=== PATIENT | male | born 1995 | race Caucasian/White ===

== ENCOUNTER 2018-01-04 22:29 | Emergency (ER) | payer BC ==
[2018-01-04 22:38] VITALS: BP 160/85
--- NOTE | 2018-01-04 23:36 | ED ---
Lower Extremity - HPI Summary HPI Summary: 22M presents with right foot pain for two days. She he states that he inverted his ankle 2 days ago. He states that minimal pain yesterday but the pain is getting worse. He states he only has pain when he ambulates. He's noticed edema and ecchymosis to the area today. He is pain over his second and first metatarsal. He denies any previous injury to the foot. He denies any ankle pain. Denies any other injury. He has been taking ibuprofen and icing it. - History of Current Complaint Chief Complaint: EDExtremityLower Stated Complaint: RIGHT FOOT INJURY Time Seen by Provider: 01/04/18 23:28 Pain Intensity: 7 - Allergies/Home Medications Allergies/Adverse Reactions: Allergies Allergy/AdvReac Type Severity Reaction Status Date / Time No Known Allergies Allergy Verified 01/04/18 23:42 Home Medications: Home Medications NK [No Home Medications Reported] 01/04/18 [History Confirmed 01/04/18] PMH/Surg Hx/FS Hx/Imm Hx Endocrine/Hematology History: Denies: Hx Anticoagulant Therapy Cardiovascular History: Denies: Hx Myocardial Infarction Infectious Disease History: No Infectious Disease History: Denies: Traveled Outside the [place] in Last 30 Days - Family History Known Family History: Negative: Diabetes - Social History Alcohol Use: Occasionally Substance Use Type: Reports: None Review of Systems Negative: Fever Negative: Chest Pain Negative: Shortness Of Breath Positive: Myalgia - right foot All Other Systems Reviewed And Are Negative: Yes Physical Exam Triage Information Reviewed: Yes Vital Signs On Initial Exam: Initial Vitals Temp Pulse Resp BP Pulse Ox 98.7 F 94 20 160/85 98 01/04/18 22:34 01/04/18 22:34 01/04/18 22:34 01/04/18 22:34 01/04/18 22:34 Vital Signs Reviewed: Yes Appearance: Positive: Well-Appearing Skin: Positive: Warm, Dry Head/Face: Positive: Normal Head/Face Inspection Eyes: Positive: Normal, Conjunctiva Clear Respiratory/Lung Sounds: Positive: Clear to Auscultation, Breath Sounds Present Cardiovascular: Positive: Normal, RRR Musculoskeletal: Positive: Strength/ROM Intact - right foot with pain, Edema Right - foot, Other - tenderness over 1st and 2nd metatarsal, good pulses, capillary refill<2 secs, ecchymosis to great toe Neurological: Positive: Normal Psychiatric: Positive: Normal Diagnostics - Vital Signs Vital Signs Temp Pulse Resp BP Pulse Ox 01/04/18 22:34 98.7 F 94 20 160/85 98 - Laboratory Lab Statement: Any lab studies that have been ordered have been reviewed, and results considered in the medical decision making process. - Radiology foot Xray Interpretation: No Acute Changes Radiology Interpretation Completed By: ED Physician Lower Extremity Course/Dx - Course Course Of Treatment: 22M presents with right foot pain for two days. She he states that he inverted his ankle 2 days ago. He states that minimal pain yesterday but the pain is getting worse. He states he only has pain when he ambulates. He's noticed edema and ecchymosis to the area today. He is pain over his second and first metatarsal. He denies any previous injury to the foot. He denies any ankle pain. Denies any other injury. He has been taking ibuprofen and icing it. On exam ecchymosis and edema noted to right foot. Neurovascular intact. X-ray read by me and Dr. Hernandez as normal. Gave walking boot and crutches. We'll have partice Rice. Patient understands agrees with plan. - Diagnoses Differential Diagnosis/HQI/PQRI: Positive: Fracture (Closed), Sprain, Strain Provider Diagnoses: Right foot pain Discharge - Sign-Out/Discharge Documenting (check all that apply): Discharge/Admit/Transfer - Discharge Plan Condition: Good Disposition: HOME Patient Education Materials: Foot Sprain (ED) Referrals: No Primary Care Phys,NOPCP [Primary Care Provider] - Edi Camacho MD [Medical Doctor] - Additional Instructions: preliminary read as no fracture Stay off foot as much as possible Ice, elevate Ibuprofen or tyenlol every 6 hours for pain Follow up with ortho if no improvement in a week Return to ED if develop or any new or worsening symptoms - Billing Disposition and Condition Condition: GOOD Disposition: HOME
--- NOTE | 2018-01-05 10:06 | RAD ---
Indication: Right foot pain. 3 views of the right foot demonstrates no fracture or dislocation. No other bone or joint abnormality is noted. IMPRESSION: No fracture of the right foot is noted.
== END 2018-01-05 00:25 | disposition home or self-care (01) ==
LOC: ED 22:29
DX: M79.671 Pain in right foot (principal)
CPT/HCPCS: 99281